=== PATIENT | male | born 1975 | race Caucasian/White ===

== ENCOUNTER 2016-11-04 14:58 | Emergency (ER) | payer BC, OTHER ==
[~2016-11-04] VITALS: Ht 182.9 cm; Wt 107.1 kg
[2016-11-04 14:59] VITALS: BP 148/100
[2016-11-04] MEDS ORDERED: DIPH,PERTUSS(ACELL),TET VAC/PF 0.5 ML IM-VACC ONE ×3 (15:28→15:39)
[2016-11-04] MEDS ORDERED: LIDOCAINE 1%, 20ML ONE (15:28)
[2016-11-04] MEDS ORDERED: LIDOCAINE 1%, 20ML SQ ONE (15:30)
== END 2016-11-04 16:15 | disposition home or self-care (01) ==
LOC: ED 16:09
DX: S61.211A Laceration without foreign body of left index finger without damage to nail, initial encounter (principal); S61.213A Laceration without foreign body of left middle finger without damage to nail, initial encounter; S61.215A Laceration without foreign body of left ring finger without damage to nail, initial encounter; W45.8XXA Other foreign body or object entering through skin, initial encounter; Y93.89 Activity, other specified; Y92.89 Other specified places as the place of occurrence of the external cause; Y99.8 Other external cause status
CPT/HCPCS: 12002; 90471; 90715